=== PATIENT | male | born 2000 | race Caucasian/White ===

== ENCOUNTER → 2021-12-16 10:04 | Outpatient (BNVA) | payer BC, SELFPAY | PROVIDERS: Family Provider Family Medicine; PCP Family Medicine; Visit Provider Family Medicine | DX: Z02.89 Encounter for other administrative examinations (principal) | CPT/HCPCS: 86706 ==

== ENCOUNTER → 2022-01-25 08:02 | Outpatient (BNVA) | payer BC, SELFPAY | PROVIDERS: Family Provider Family Medicine; PCP Family Medicine; Visit Provider Family Medicine | DX: Z02.89 Encounter for other administrative examinations (principal) | CPT/HCPCS: 86706 ==